=== PATIENT | male | born 1960 | race Caucasian/White ===

== ENCOUNTER 2016-12-31 22:41 | Emergency (ER) | payer OTHER ==
[~2016-12-31] VITALS: Ht 165.1 cm; Wt 81.2 kg
[2016-12-31 22:42] VITALS: BP 166/108; TEMP 36.8; O2SAT 95; Ht 165.1 cm; Wt 81.2 kg
[2016-12-31 22:51] VITALS: PULSE 96
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
== END 2016-12-31 23:22 | disposition left against medical advice (07) ==
LOC: EDBD 22:41 → C.EDC 22:43
DX: R07.9 Chest pain, unspecified (principal); V49.40XA Driver injured in collision with unspecified motor vehicles in traffic accident, initial encounter; Y93.89 Activity, other specified; Y99.8 Other external cause status